=== PATIENT | male | born 1980 | race Caucasian/White ===

== ENCOUNTER 2020-02-04 12:21 | Emergency (ER) | payer OTHER, SELFPAY ==
--- NOTE | 2020-02-04 | US_ITS ---
EXAMINATION: ULTRASOUND RIGHT THIGH CLINICAL INFORMATION: In the thigh pain with question of abscess or cellulitis COMPARISON: None TECHNIQUE: Ultrasound of the right inner thigh was performed. FINDINGS: In the area of clinical concern, there is a complex ill-defined masslike area measuring 9.3 x 3.1 x 5.6 cm. There are some central cystic irregular components. No discrete abscess is seen. No shadowing air or foreign body is seen. Of note, no significant increased Doppler flow signal is seen in this region to suggest hyperemia. IMPRESSION: Ill-defined area with some solid and cystic components as described above. Infection would certainly be a consideration.
[2020-02-04 13:08] VITALS: BP 150/92; PULSE 98; RESP 20; TEMP 36.1; O2SAT 99; BMI 41.3
[2020-02-04 14:46] VITALS: BP 143/84; PULSE 87; RESP 18; TEMP 37.2; O2SAT 94
--- NOTE | 2020-02-04 14:46 | ED_ITS ---
HPI - Skin/Abscess/Foreign Bdy General Chief complaint: Skin/Abscess/Foreign Body Stated complaint: LUMP ON THIGH Time Seen by Provider: 02/04/20 14:41 Source: patient Mode of arrival: ambulatory Limitations: no limitations History of Present Illness complaint: abscess/boil Onset (ago): day(s) (2) Location: RLE (Right inner thigh ) Severity: moderate Quality: aching Pain Consistency: constant Relieving factors: none and other Exacerbating factors: palpation and movement Context: none Associated symptoms: denies other symptoms Treatments prior to arrival: attempted to drain pus at home and other (warm compresses ) Related Data Previous Rx's Medication Instructions Recorded cephalexin [Keflex] 500 mg PO QID 10 Days #40 cap 02/04/20 doxycycline monohydrate 100 mg PO BID 10 Days #20 cap 02/04/20 ibuprofen 800 mg PO Q8H PRN #14 tab 02/04/20 Allergies Allergy/AdvReac Type Severity Reaction Status Date / Time No Known Allergies Allergy Unverified 01/20/20 14:41 [No Known Allergies*] Review of Systems Review of Systems: Yes all other systems are reviewed and are negative Constitutional: Constitutional: Reports as per HPI, Denies body ache(s), Denies chills, Denies fatigue, Denies fever(s), Denies malaise and Denies weakness Eyes: Eyes: Reports as per HPI ENT: Reports as per HPI Cardiovascular: Cardiovascular: Reports as per HPI Respiratory: Respiratory: Reports as per HPI Gastrointestinal: Gastrointestinal: Reports as per HPI Genitourinary: Genitourinary: Reports as per HPI Musculoskeletal: Musculoskeletal: Reports as per HPI Integumentary/Breasts: Skin/Breast: Reports as per HPI Neurologic: Reports as per HPI and Denies weakness Psychiatric: Psychiatric: Reports as per HPI Endocrine: Endocrine: Reports as per HPI and Denies fatigue Hematologic/Lymphatic: Hematologic/Lymphatic: Reports as per HPI and Denies lymphadenopathy Allergic/Immunologic: Allergic/Immunologic: Reports as per HPI PMFSH Past Medical History Medical History Hernia Prediabetes Psoriasis Sciatica Surgical History H/O umbilical hernia repair Social History Social History Alcohol intake: never Smoking Status: Current every day smoker Use of substances other than those prescribed or required for medical reasons: No Any prior treatment program specific to substance use: Yes Advance Directives: No Advance Directives Information Provided: No Physical Exam Vital Signs and I&O and Narrative: Vital Signs and I&O: Vital Signs Temp 98.9 F 02/04/20 14:46 Pulse 87 02/04/20 14:46 Resp 18 02/04/20 14:46 BP 143/84 H 02/04/20 14:46 Pulse Ox 94 02/04/20 14:46 Intake & Output 02/03/20 02/04/20 02/04/20 18:59 06:59 18:59 Weight 154.221 kg Body Mass Index 41.3 Const: General: cooperative, healthy appearing, no acute distress, well developed, alert, awake and Physically active Nutritional Appearance: obese Orientation/consciousness: patient oriented x3 Limitations: no limitations HENMT: Head: Yes normal to inspection Ears: hearing grossly normal bilaterally General nose exam: Normal external nose present Face and sinus: Yes normal facial exam Mouth: Normal oral and palatal mucosa present and moist mucous membranes Eyes: General: appearance normal, both eyes and all related structures Visual Contreras: normal visual contreras by confrontation Pupils: Equal, round and reactive pupils present EOM: EOMs intact bilaterally Neck: Neck: Yes normal visual inspection, Yes full ROM, No no lymphadenopathy, No no meningeal signs, Yes trachea midline and Yes supple Resp: Effort & Inspection: normal respiratory effort and able to speak in complete sentences Auscultation: clear to auscultation bilaterally Cardio: Rate: regular rate Rhythm: regular rhythm Heart sounds: S1 normal heart sound present and S2 normal heart sound present Peripheral pulses: Peripheral pulses 2+ throughout Back/Spine/Pelvis: Cervical Spine: cervical ROM normal Thoracic/Lumbar Spine: thoraco-lumbar ROM normal Skin: General skin exam: elasticity normal, turgor normal and erythema (Right inner thigh. No fluctuance/induration/streaking noted.) Neuro: General: patient oriented x3 and No no meningeal signs Cranial nerves: Yes Equal, round and reactive pupils present Course Course Hospital Course: Will obtain US to Evaluate for possible abscess vs cellulitis Pt requesting to leave at this time despite US results not being back yet. Therefore will d/c home c abx's and instructions to return if any new or worsening symptoms. Pt understands and agrees with plan at this time 6:11PM pt's US result came back and revealed CLINICAL INFORMATION: In the thigh pain with question of abscess or cellulitis COMPARISON: None TECHNIQUE: Ultrasound of the right inner thigh was performed. FINDINGS: In the area of clinical concern, there is a complex ill-defined masslike area measuring 9.3 x 3.1 x 5.6 cm. There are some central cystic irregular components. No discrete abscess is seen. No shadowing air or foreign body is seen. Of note, no significant increased Doppler flow signal is seen in this region to suggest hyperemia. IMPRESSION: Ill-defined area with some solid and cystic components as described above. Infection would certainly be a consideration. - therefore will call pt and inform if not better after the PO abx's to f/u PCP. Pt understand and agrees with plan MDM - Skin/Abscess/Foreign Bdy Medical Records Attestation: I reviewed the patient's medical records. Discharge Plan Discharge Clinical Impression: Cellulitis Qualifiers: Site of cellulitis: extremity Site of cellulitis of extremity: lower extremity Laterality: right Qualified Code(s): L03.115 - Cellulitis of right lower limb Patient Disposition: Home, Self-Care Instructions: Cellulitis (ED) Prescriptions: New doxycycline monohydrate 100 mg capsule 100 mg PO BID 10 Days Qty: 20 RF: 0 cephalexin [Keflex] 500 mg capsule 500 mg PO QID 10 Days Qty: 40 RF: 0 ibuprofen 800 mg tablet 800 mg PO Q8H PRN (Reason: pain) Qty: 14 RF: 0 Interventions: ED Discharge Assessment Last Done: 02/04/20 16:51 Discharge Date/Time: 02/04/20 16:45 Print Language: Italian
--- NOTE | 2020-02-04 16:20 | PC.NURSE ---
PT HAD ULTRA SOUND DOWN BUT STATING HE WANTS TO LEAVE BECAUSE HE IS TIRED AND HE DOES NOT WANT TO WAIT FOR RESULTS. LEANNA HERNANDEZ AWARE AND SPOKE WITH PT BUT HE DOES NOT WANT TO STAY. HE WILL BE D/C ON ANTIBIOTIC AND WILL BE CALLED ONLY WITH ABNORMAL RESULTS.
== END 2020-02-04 16:45 | disposition home or self-care (01) ==
PROVIDERS: Emergency Provider Emergency Medicine; PCP Internal Medicine
DX: L03.115 Cellulitis of right lower limb (principal); R73.03 Prediabetes; F17.200 Nicotine dependence, unspecified, uncomplicated
CPT/HCPCS: 76882; 99284

== ENCOUNTER 2020-11-22 11:11 | Outpatient (REF) | payer OTHER, SELFPAY ==
[2020-11-22 13:15] LABS: Alanine Aminotransferase 18 U/L (0-40); Albumin Level 4.2 g/dL (3.5-5.0); Alkaline Phosphatase 73 U/L (39-117); Anion Gap 12 (12-20); Aspartate Amino Transferase 18 U/L (5-37); Bilirubin Total 0.7 mg/dL (0.0-1.0); Blood Urea Nitrogen 14 mg/dL (9-16); Calcium 9.6 mg/dL (8.4-10.2); Carbon Dioxide 29 mmol/L (22-29); Chloride 100 mmol/L (96-108); Cholesterol 177 mg/dL; Estimated Glomerular Filt Rate > 60; Glucose Fasting 100 mg/dL (60-99); HDL Cholesterol 45 mg/dL; LDL Cholesterol Calculated 112 mg/dl; Potassium 4.2 mmol/L (3.3-5.1); Sodium 137 mmol/L (135-145); Total Protein 7.2 g/dL (6.5-8.0); Triglycerides 100 mg/dL
[2020-11-22 14:00] LABS: Estimated Average Glucose 146 mg/dL; Hemoglobin A1c % 6.7 %
[2020-11-29 15:27] LABS: Testosterone, Free 13.4 pg/mL (35.0-155.0); Testosterone, Total 129 ng/dL (250-1100)
== END 2020-11-22 11:12 | disposition home or self-care (01) ==
LOC: HO.MANLDS 11:11
PROVIDERS: PCP Internal Medicine; Visit Provider Internal Medicine
DX: E11.9 Type 2 diabetes mellitus without complications (principal); N52.9 Male erectile dysfunction, unspecified
CPT/HCPCS: 36415; 80053; 80061; 83036; 84402; 84403

== ENCOUNTER 2020-12-08 10:55 | Outpatient (REF) | payer OTHER, SELFPAY ==
[2020-12-12 17:46] LABS: Testosterone, Free 12.5 pg/mL (35.0-155.0); Testosterone, Total 89 ng/dL (250-1100)
== END 2020-12-08 10:56 | disposition home or self-care (01) ==
LOC: HO.MANLDS 10:55
PROVIDERS: PCP Internal Medicine; Visit Provider Internal Medicine
DX: E29.1 Testicular hypofunction (principal)
CPT/HCPCS: 36415; 84402; 84403

== ENCOUNTER 2021-03-07 10:01 | Outpatient (REF) | payer OTHER, SELFPAY ==
[2021-03-07 11:13] LABS: Estimated Average Glucose 143 mg/dL; Hemoglobin A1c % 6.6 %
[2021-03-12 04:12] LABS: Testosterone, Total 303 ng/dL (250-1100)
== END 2021-03-07 10:02 | disposition home or self-care (01) ==
LOC: HO.MANLDS 10:01
PROVIDERS: PCP Internal Medicine; Visit Provider Internal Medicine
DX: R79.89 Other specified abnormal findings of blood chemistry (principal)
CPT/HCPCS: 36415; 83036; 84403

== ENCOUNTER 2021-06-27 09:54 | Outpatient (REF) | payer OTHER, SELFPAY ==
[2021-06-27 12:15] LABS: Estimated Average Glucose 186 mg/dL; Hemoglobin A1c % 8.1 %
[2021-07-01 12:26] LABS: Testosterone, Total 741 ng/dL (250-1100)
== END 2021-06-27 09:55 | disposition home or self-care (01) ==
LOC: HO.MANLDS 09:54
PROVIDERS: PCP Internal Medicine; Visit Provider Internal Medicine
DX: E11.65 Type 2 diabetes mellitus with hyperglycemia (principal)
CPT/HCPCS: 36415; 83036; 84403

== ENCOUNTER 2022-12-30 10:23 | Outpatient (REF) | payer OTHER, SELFPAY ==
[2022-12-30 12:56] LABS: MANUAL DIFF FLAG NO
[2022-12-30 13:06] LABS: Basophils Absolute Auto 0.1 X10*3/uL (0.0-0.2); Basophils Percent Auto 0.9 % (0-2); Hematocrit 44.8 % (42.0-52.0); Hemoglobin 14.4 g/dl (14.0-18.0); Imm Gran Abs Auto 0.02 X10*3/uL (0.00-0.03); Imm Gran Pct Auto 0.2 % (0.0-0.4); Lymphocytes Absolute Auto 3.1 X10*3/uL (1.2-4.9); Lymphocytes Percent Auto 29.8 % (20-40); Mean Corpuscular HGB Conc 32.1 g/dl (31.0-36.0); Mean Corpuscular Volume 87.2 fL (80.0-98.0); Mean Platelet Volume 9.5 fL (9.4-12.4); Monocytes Absolute Auto 0.8 X10*3/uL (0.1-1.2); Monocytes Percent Auto 7.4 % (2-11); Neutrophils Absolute Auto 6.5 x10*3/uL (2.0-8.3); Neutrophils Percent Auto 61.7 % (45-73); Platelet Count 295 X10*3/uL (160-400); Red Blood Count 5.14 X10*6/uL (4.60-5.80); Red Cell Distribution Width 12.9 % (11.0-16.0); White Blood Count 10.5 X10*3/uL (4.8-10.8)
[2022-12-30 13:22] LABS: Estimated Average Glucose 143 mg/dL; Hemoglobin A1c % 6.6 % (<6.0)
[2022-12-30 13:25] LABS: Alanine Aminotransferase 20 U/L (0-40); Albumin Level 4.2 g/dL (3.5-5.0); Alkaline Phosphatase 64 U/L (39-117); Anion Gap 11 (12-20); Aspartate Amino Transferase 18 U/L (5-37); Bilirubin Total 0.5 mg/dL (0.0-1.0); Blood Urea Nitrogen 17 mg/dL (9-16); Calcium 9.5 mg/dL (8.4-10.2); Carbon Dioxide 30 mmol/L (22-29); Chloride 99 mmol/L (96-108); Estimated Glomerular Filt Rate > 60; Glucose Random 119 mg/dL (60-115); Potassium 4.4 mmol/L (3.3-5.1); Sodium 136 mmol/L (135-145); Total Protein 7.6 g/dL (6.5-8.0)
== END 2022-12-30 10:24 | disposition home or self-care (01) ==
LOC: HO.MANLDS 10:23
PROVIDERS: Visit Provider Internal Medicine
DX: E11.65 Type 2 diabetes mellitus with hyperglycemia (principal)
CPT/HCPCS: 36415; 80053; 83036; 85025

== ENCOUNTER 2023-05-19 08:45 | Emergency (ER) | payer OTHER, SELFPAY ==
--- NOTE | ~2023-05-19 | XR_ITS ---
EXAMINATION: XR LUMBOSACRAL SPINE CLINICAL INFORMATION: Injury. Pain COMPARISON: None available. TECHNIQUE: Three views of the lumbosacral spine. FINDINGS: There is normal lumbar lordosis. The vertebral heights, alignment is normal. There is loss of L2-L2 disc height with ventral and posterior spondylosis. Rest the disc heights are normal. No visible acute fracture, dislocation or subluxation seen. The paravertebral soft tissues are normal. SI joints are normal. There is moderate right lateral bridging osteophyte L2-L2 disc level. The paravertebral soft tissues are normal. XR/XR lumbar spine 2-3V IMPRESSION: Degenerative disc changes L2-L2 disc level with ventral and posterior spondylosis. No visible acute fracture, dislocation or lytic process seen. .
[2023-05-19 09:03] VITALS: BP 176/123; PULSE 87; RESP 20; TEMP 35.9; O2SAT 97; BMI 52.0
--- NOTE | 2023-05-19 10:24 | ED.GENADULT ---
HPI - General Adult General Chief complaint: Back Pain/Injury Stated complaint: pinched nerve in back Time Seen by Provider: 05/19/23 10:23 Source: patient and family (patient's father) Mode of arrival: ambulatory Limitations: no limitations History of Present Illness HPI narrative: Patient is a 42 year old assigned male at with a history of sciatica presenting to the emergency department today with continued low back pain and intermittent left upper leg numbness. Patient states that over the last 6-8 weeks he has had low back pain and intermittent left upper leg weakness. Patient denies any dizziness, lightheadedness, abdominal pain, nausea, vomiting, fever, chills, blurry vision, double vision, loss of vision, chest pain, difficulty breathing, shortness of breath, night sweats, pain with urination, increased urinary frequency, increased urinary urgency, blood in his urine or stool, syncope or a near syncopal episode, bowel incontinence, bladder incontinence, bowel retention, bladder retention, or any other complaints at this time. Onset (ago): week(s) (-8) Location: back Severity: mild Severity scale (1-10): 3 Quality: aching Pain Consistency: constant Relieving factors: none Exacerbating factors: none Associated symptoms: denies other symptoms Treatments prior to arrival: none Related Data Previous Rx's Medication Instructions Recorded cephalexin 500 mg capsule (Keflex) 500 mg PO QID celluilitis 10 days 02/04/20 #40 caps doxycycline monohydrate 100 mg 100 mg PO BID 10 days #20 caps 02/04/20 capsule ibuprofen 800 mg tablet 800 mg PO Q8H PRN pain #14 tabs 02/04/20 cyclobenzaprine 5 mg tablet 5 mg PO TID PRN muscle spasm 7 05/19/23 days #21 tabs prednisone 20 mg tablet 20 mg PO DAILY 7 days #7 tabs 05/19/23 Allergies Allergy/AdvReac Type Severity Reaction Status Date / Time No Known Allergies Allergy Verified 05/19/23 09:08 [No Known Allergies*] Review of Systems Constitutional: Constitutional: Reports no additional constitutional complaints, Denies chills, Denies fever(s) and Denies night sweats Eyes: Eyes: Reports no additional eye complaints, Denies blurry vision, Denies change in vision, Denies diplopia, Denies eye discharge, Denies loss of vision and Denies eye pain ENT: Denies dizziness Cardiovascular: Cardiovascular: Reports no additional cardiovascular complaints, Denies chest pain, Denies lightheadedness, Denies Loss of Consciousness and Denies dyspnea Respiratory: Respiratory: Reports no additional respiratory complaints and Denies dyspnea Gastrointestinal: Gastrointestinal: Reports no additional gastrointestinal complaints, Denies abdominal pain, Denies melena, Denies hematochezia, Denies change in bowel habits and Denies change in stool character Genitourinary: Genitourinary: Reports no additional male genitourinary complaints, Denies hematuria, Denies oliguria, Denies difficulty urinating, Denies dysuria, Denies urinary frequency, Denies urinary hesitancy, Denies urinary incontinence and Denies urinary urgency Musculoskeletal: Musculoskeletal: Reports no additional musculoskeletal complaints and Reports back pain Neurologic: Denies dizziness and Denies loss of vision Psychiatric: Psychiatric: Reports no additional psychiatric complaints Endocrine: Endocrine: Reports no additional endocrine complaints Hematologic/Lymphatic: Hematologic/Lymphatic: Reports no additional hematologic/lymphatic complaints Allergic/Immunologic: Allergic/Immunologic: Reports no additional allergic/immunologic complaints PMFSH Past Medical History Attestation statement: The following information was validated with the patient. Source: old records reviewed and nursing notes reviewed Onset Date is defined in the Problem List Problems that require an onset date and time if occurred within 24 hrs of arrival to the ED Aortic Dissection and Rupture; Neurologic impairment; Cardiopulmonary Arrest; Endotracheal Intubation; Insertion or Replacement of Mechanical Circulatory Assist Device Medical History Hernia Sciatica Psoriasis Prediabetes Surgical History H/O umbilical hernia repair Social History Social History Alcohol intake: never Advance Directives: No Advance Directives Information Provided: No Physical Exam ED Vital Signs: Vital Signs - 24 hr 05/19/23 09:03 Temperature 96.7 F L Pulse Rate 87 Respiratory Rate 20 Blood Pressure 176/123 H Pulse Oximetry 97 Oxygen Delivery Method Room Air BMI result Body Mass Index 52.0 Const General: cooperative, no acute distress, alert and awake Nutritional Appearance: well nourished Orientation/consciousness: patient oriented x3 Limitations: no limitations HENMT Head: Yes normal to inspection and Yes atraumatic Ears: hearing grossly normal bilaterally and external ears normal General nose exam: Normal external nose present, no nasal discharge noted and no epistaxis Face and sinus: Yes normal facial exam, No abrasion and No laceration Mouth: Normal oral and palatal mucosa present, no drooling and no muffled voice Eyes General: appearance normal, both eyes and all related structures Periorbital: periorbital findings normal Eyelids: Yes eyelids normal Conjunctivae: conjunctivae normal Pupils: Equal, round and reactive pupils present EOM: EOMs intact bilaterally Neck Neck: Yes normal visual inspection, Yes full ROM and Yes no lymphadenopathy Chest Chest palpation & inspection: normal inspection of the chest Resp Effort & Inspection: normal respiratory effort and able to speak in complete sentences GI Inspection: Yes normal to inspection General: Yes no CVA tenderness Back/Spine/Pelvis Back: no CVA tenderness Cervical Spine: normal cervical lordosis and cervical ROM normal Thoracic/Lumbar Spine: thoracic and lumbar spine normal to inspection and thoraco-lumbar ROM normal Pelvis: no pain with anterior-posterior compression Neuro General: patient oriented x3 and moves all extremities Cranial nerves: Yes Equal, round and reactive pupils present Cognition (Neuro): normal cognition Motor exam (neuro): 5/5 motor strength present throughout Sensory Exam: Normal double simultaneous stimulation for sensation Coordination: [id number] test normal Extrem General: Yes normal to inspection, Yes full ROM and Yes capillary refill normal Psych Appearance: grossly normal Mental Status: mental status grossly normal Affect: normal affect Attitude: cooperative Thought process: Normal thought process present Thought content: Normal thought content present Insight: Good insight present (Psych) Medications Administered Discontinued Medications Generic Name Dose Route Start Last Admin Trade Name Gina PRN Reason Stop Dose Admin Ketorolac Tromethamine 15 mg 05/19/23 10:28 05/19/23 10:54 Ketorolac Tromethamine 15 Mg/Ml Vial IM 05/19/23 10:29 15 mg ONCE ONE Administration Prednisone 20 mg 05/19/23 10:28 05/19/23 10:54 Prednisone 20 Mg Tablet PO 05/19/23 10:29 20 mg ONCE ONE Administration Medical Decision Making Medical Decision Making [facility] Narrative: Patient is a 42 year old assigned male at with a history of sciatica presenting to the emergency department today with low back pain. Patient's physical exam was unremarkable. Patient's lumbar x-ray showed no acute process. I explained my physical exam findings as well as all test results to the patient and the patient's father. I answered all questions asked by the patient and the patient's father. Patient received IM Toradol and PO Flexeril which he stated helped his symptoms significantly. I stressed the importance of the patient taking his medication as prescribed. I stressed the importance of the patient following up with his primary care provider and a community service specialist. I stressed the importance of the patient returning to the emergency department immediately if his symptoms were to worsen or if he were to develop any dizziness, shortness of breath, difficulty breathing, chest pain, blurry vision, loss of vision, nausea, vomiting, abdominal pain, fever, chills, back pain, or any other complaints. Patient and the patient's father verbalized agreement and understanding with this treatment plan and discharge. Differential Diagnosis Differential Diagnoses: The differential diagnosis associated with the presentation includes Low back pain Lumbar radiculopathy Herniated disc Lumbar strain Lumbar sprain Admission/Observation Consideration of admission/observation: Escalation of care including admission/observation considered Patient would have been admitted to the hospital had his work up had any findings where hospital admission was appropriate and his clinical presentation warranted hospital admission. Independent Interpretation I performed an independent interpretation of an: Plain X-Ray Interpretation: My interpretation is in agreement with the radiologist's impression of this imaging study. EXAMINATION: XR LUMBOSACRAL SPINE CLINICAL INFORMATION: Injury. Pain COMPARISON: None available. TECHNIQUE: Three views of the lumbosacral spine. FINDINGS: There is normal lumbar lordosis. The vertebral heights, alignment is normal. There is loss of L2-L2 disc height with ventral and posterior spondylosis. Rest the disc heights are normal. No visible acute fracture, dislocation or subluxation seen. The paravertebral soft tissues are normal. SI joints are normal. There is moderate right lateral bridging osteophyte L2-L2 disc level. The paravertebral soft tissues are normal. XR/XR lumbar spine 2-3V IMPRESSION: Degenerative disc changes L2-L2 disc level with ventral and posterior spondylosis. No visible acute fracture, dislocation or lytic process seen. . Dictated By: Oh Osborn MD Signed By: Electronically signed by Oh Osborn MD 05/19/23 0270 Radiology Impression Discussion of test interpretation with radiology: I have reviewed the radiologist's reading. Independent Historian Clinical information obtained from an independent historian. History obtained from or confirmed by: Parent (patient's father provided additional history and confirmed the history provided by the patient.) Prescription Management I considered prescription management with: Pain Medication (patient prescribed pain medication) Discharge Plan Discharge Clinical Impression: Back pain Patient Disposition: Home, Self-Care Instructions: Back Pain (ED) Additional Instructions: Follow up with your primary care provider and a community service specialist. Return to the emergency department immediately if your symptoms worsen or if you develop any dizziness, shortness of breath, difficulty breathing, chest pain, blurry vision, loss of vision, nausea, vomiting, abdominal pain, fever, chills, back pain, or any other complaints. Prescriptions: New cyclobenzaprine 5 mg tablet 5 mg PO TID PRN (Reason: muscle spasm) 7 Days Qty: 21 0RF prednisone 20 mg tablet 20 mg PO DAILY 7 Days Qty: 7 0RF No Action doxycycline monohydrate 100 mg capsule 100 mg PO BID 10 Days Qty: 20 0RF cephalexin [Keflex] 500 mg capsule 500 mg PO QID 10 Days Qty: 40 0RF ibuprofen 800 mg tablet 800 mg PO Q8H PRN (Reason: pain) Qty: 14 0RF Referrals: [facility] [Provider Group] (Call to establish and follow up with an orthopedic provider.) [facility] [Provider Group] (Call to establish and follow up with a community service specialist.) Danny Hughes MD [Primary Care Provider] - Stand Alone Forms: Work/School Release Interventions: ED Discharge Assessment Last Done: 05/19/23 12:30 Discharge Date/Time: 05/19/23 12:30 Print Language: [place]
[2023-05-19] MEDS: Ketorolac Tromethamine 15 MG/ML VIAL IM (10:54)
[2023-05-19] MEDS: predniSONE 20 MG TABLET PO (10:54)
== END 2023-05-19 12:30 | disposition home or self-care (01) ==
PROVIDERS: Emergency Provider Emergency Medicine; PCP Internal Medicine
DX: M54.50 Low back pain, unspecified (principal); R20.0 Anesthesia of skin; Z79.899 Other long term (current) drug therapy
CPT/HCPCS: 72100; 96372; 99283; 99284; J1885

== ENCOUNTER 2023-07-07 12:20 | Outpatient (REF) | payer OTHER, SELFPAY ==
[2023-07-07 17:24] LABS: MANUAL DIFF FLAG NO
[2023-07-07 17:34] LABS: Basophils Absolute Auto 0.1 X10*3/uL (0.0-0.2); Eosinophils Absolute Auto 0.3 X10*3/uL (0.0-0.4); Eosinophils Percent Auto 4.2 % (0-4); Hematocrit 42.7 % (42.0-52.0); Hemoglobin 14.1 g/dl (14.0-18.0); Imm Gran Abs Auto 0.03 X10*3/uL (0.00-0.03); Imm Gran Pct Auto 0.4 % (0.0-0.4); Lymphocytes Absolute Auto 2.8 X10*3/uL (1.2-4.9); Lymphocytes Percent Auto 35.9 % (20-40); Mean Corpuscular Hemoglobin 29.7 pg (27.0-33.0); Mean Corpuscular Volume 89.9 fL (80.0-98.0); Mean Platelet Volume 9.5 fL (9.4-12.4); Monocytes Absolute Auto 0.6 X10*3/uL (0.1-1.2); Monocytes Percent Auto 7.6 % (2-11); Neutrophils Percent Auto 50.9 % (45-73); Platelet Count 293 X10*3/uL (160-400); Red Blood Count 4.75 X10*6/uL (4.60-5.80); Red Cell Distribution Width 12.4 % (11.0-16.0); White Blood Count 7.8 X10*3/uL (4.8-10.8)
[2023-07-07 17:42] LABS: Alanine Aminotransferase 37 U/L (0-40); Albumin Level 4.2 g/dL (3.5-5.0); Alkaline Phosphatase 60 U/L (39-117); Anion Gap 11 (12-20); Aspartate Amino Transferase 24 U/L (5-37); Bilirubin Total 0.3 mg/dL (0.0-1.0); Blood Urea Nitrogen 15 mg/dL (9-16); Calcium 9.2 mg/dL (8.4-10.2); Carbon Dioxide 28 mmol/L (22-29); Chloride 101 mmol/L (96-108); Estimated Average Glucose 206 mg/dL; Estimated Glomerular Filt Rate > 60; Glucose Random 324 mg/dL (60-115); Hemoglobin A1c % 8.8 % (<6.0); Potassium 4.3 mmol/L (3.3-5.1); Sodium 136 mmol/L (135-145); Total Protein 7.5 g/dL (6.5-8.0)
[2023-07-07 18:05] LABS: Creatinine Urine 98.34 mg/dL; Microalbum/Creatinine Ratio Ur 10.1 ug/mg cr (<30)
[2023-07-13 12:53] LABS: Testosterone, Total 180 ng/dL (250-1100)
== END 2023-07-07 12:21 | disposition home or self-care (01) ==
LOC: HO.MANLDS 12:20
PROVIDERS: Visit Provider Internal Medicine
DX: E11.65 Type 2 diabetes mellitus with hyperglycemia (principal); E29.1 Testicular hypofunction
CPT/HCPCS: 36415; 80053; 82043; 82570; 83036; 84403; 85025

== ENCOUNTER 2023-07-08 07:57 | Outpatient (REF) | payer OTHER, SELFPAY ==
[2023-07-08 15:12] LABS: Cholesterol 177 mg/dL (<200); HDL Cholesterol 51 mg/dL (>40); LDL Cholesterol Calculated 94 mg/dL (<100); Triglycerides 162 mg/dL (<150)
== END 2023-07-08 07:58 | disposition home or self-care (01) ==
LOC: HO.MANLDS 07:57
PROVIDERS: Visit Provider Internal Medicine
DX: E11.65 Type 2 diabetes mellitus with hyperglycemia (principal)
CPT/HCPCS: 36415; 80061

== ENCOUNTER 2024-06-30 11:17 | Outpatient (REF) | payer OTHER, SELFPAY ==
[2024-06-30 13:33] LABS: MANUAL DIFF FLAG NO
[2024-06-30 13:36] LABS: Basophils Absolute Auto 0.1 X10*3/uL (0.0-0.2); Basophils Percent Auto 0.9 % (0-2); Eosinophils Percent Auto 0.1 % (0-4); Hematocrit 48.1 % (42.0-52.0); Hemoglobin 15.3 g/dl (14.0-18.0); Imm Gran Abs Auto 0.03 X10*3/uL (0.00-0.03); Imm Gran Pct Auto 0.3 % (0.0-0.4); Lymphocytes Percent Auto 29.4 % (20-40); Mean Corpuscular HGB Conc 31.8 g/dl (31.0-36.0); Mean Corpuscular Hemoglobin 27.6 pg (27.0-33.0); Mean Corpuscular Volume 86.7 fL (80.0-98.0); Mean Platelet Volume 9.5 fL (9.4-12.4); Monocytes Absolute Auto 0.7 X10*3/uL (0.1-1.2); Monocytes Percent Auto 6.4 % (2-11); Neutrophils Absolute Auto 6.5 x10*3/uL (2.0-8.3); Neutrophils Percent Auto 62.9 % (45-73); Platelet Count 322 X10*3/uL (160-400); Red Blood Count 5.55 X10*6/uL (4.60-5.80); Red Cell Distribution Width 12.3 % (11.0-16.0); White Blood Count 10.3 X10*3/uL (4.8-10.8)
[2024-06-30 13:48] LABS: Estimated Average Glucose 278 mg/dL; Hemoglobin A1c % 11.3 % (<6.0)
[2024-06-30 14:35] LABS: Alanine Aminotransferase 29 U/L (0-40); Albumin Level 4.2 g/dL (3.5-5.0); Alkaline Phosphatase 81 U/L (39-117); Anion Gap 12 (12-20); Aspartate Amino Transferase 25 U/L (5-37); Bilirubin Total 0.9 mg/dL (0.0-1.0); Blood Urea Nitrogen 17 mg/dL (9-16); Calcium 9.7 mg/dL (8.4-10.2); Carbon Dioxide 30 mmol/L (22-29); Chloride 101 mmol/L (96-108); Cholesterol 186 mg/dL (<200); Estimated Glomerular Filt Rate > 60; Glucose Random 178 mg/dL (60-115); HDL Cholesterol 53 mg/dL (>40); LDL Cholesterol Calculated 112 mg/dL (<100); Potassium 4.8 mmol/L (3.3-5.1); Sodium 138 mmol/L (135-145); Total Protein 8.4 g/dL (6.5-8.0); Triglycerides 106 mg/dL (<150)
[2024-07-10 05:54] LABS: Testosterone, Free 762.8 pg/mL (35.0-155.0); Testosterone, Total 3246 ng/dL (250-1100)
== END 2024-06-30 11:18 | disposition home or self-care (01) ==
LOC: HO.MANLDS 11:17
PROVIDERS: Visit Provider Physician Assistant
DX: E11.65 Type 2 diabetes mellitus with hyperglycemia (principal); E29.1 Testicular hypofunction
CPT/HCPCS: 36415; 80053; 80061; 83036; 84402; 84403; 85025

== ENCOUNTER 2025-01-21 09:27 | Outpatient (REF) | payer OTHER, SELFPAY ==
[2025-01-21 13:55] LABS: Hemoglobin A1C 360.9736 umol/L; Total Hemoglobin (HGBA1C) 3822.9382 umol/L
== END 2025-01-21 09:28 | disposition home or self-care (01) ==
LOC: HO.MANLDS 09:27
PROVIDERS: Visit Provider Internal Medicine
DX: E11.65 Type 2 diabetes mellitus with hyperglycemia (principal)
CPT/HCPCS: 36415; 83036

== ENCOUNTER 2025-02-22 09:25 | Outpatient (REF) | payer OTHER, SELFPAY ==
--- OUTSIDE RECORDS SUMMARY | 2025-02-22 10:30 | XMS_ITS | Data Portability ---
Author Organization [facility], Telehealth Patient Home Address [address] [place] [address] Assessment Encounter Date Assessment Date Assessment LastModified by Organization Details LastModified Time 07/07/2023 07/07/2023 [id number] [place] [id number] (PROVIDER RELATIONS CONSULTANT) MDM MODERATE MUST MEET 2 OUT OF 3 ELEMENTS: PROBLEMS, DATA OR RISK ELEMENT 1: PROBLEMS ADDRESSED 1 OR MORE CHRONIC ILLNESS WITH EXACERBATION OR 2 OR MORE STABLE CHRONIC ILLNESSES OR 1 UNDIAGNOSED NEW PROBLEM OR 1 ACUTE ILLNESS W/SYMPTOMS OR 1 ACUTE COMPLICATED INJURY ELEMENT 2: DATA MUST MEET 1 OF 3 CATEGORIES CATEGORY 1: REVIEW OF PRIOR EXTERNAL NOTES, REVIEW OF RESULTS, ORDERING OF EACH TEST, ASSESSMENT REQUIRING INDEPENDENT HISTORIAN OR CATEGORY 2: INDEPENDENT INTERPRETATION OF TESTS BY ANOTHER PHYSICIAN OR SPECIALIST OR CATEGORY 3: DISCUSSION OF MGT OR TEST INTERPRETATION W/EXTERNAL PHYSICIAN OR SPECIALIST ELEMENT 3: RISK RISK OF COMPLICATIONS AND/OR MORBIDITY OR MORTALITY OF PATIENT MANAGEMENT PROVIDER MUST THOROUGHLY DOCUMENT EACH ELEMENT THAT IS COVERED Not available 07/07/2023 12:10:49 01/21/2025 01/21/2025 [id number] [place] [id number] (PROVIDER RELATIONS CONSULTANT) MDM MODERATE MUST MEET 2 OUT OF 3 ELEMENTS: PROBLEMS, DATA OR RISK ELEMENT 1: PROBLEMS ADDRESSED 1 OR MORE CHRONIC ILLNESS WITH EXACERBATION OR 2 OR MORE STABLE CHRONIC ILLNESSES OR 1 UNDIAGNOSED NEW PROBLEM OR 1 ACUTE ILLNESS W/SYMPTOMS OR 1 ACUTE COMPLICATED INJURY ELEMENT 2: DATA MUST MEET 1 OF 3 CATEGORIES CATEGORY 1: REVIEW OF PRIOR EXTERNAL NOTES, REVIEW OF RESULTS, ORDERING OF EACH TEST, ASSESSMENT REQUIRING INDEPENDENT HISTORIAN OR CATEGORY 2: INDEPENDENT INTERPRETATION OF TESTS BY ANOTHER PHYSICIAN OR SPECIALIST OR CATEGORY 3: DISCUSSION OF MGT OR TEST INTERPRETATION W/EXTERNAL PHYSICIAN OR SPECIALIST ELEMENT 3: RISK RISK OF COMPLICATIONS AND/OR MORBIDITY OR MORTALITY OF PATIENT MANAGEMENT PROVIDER MUST THOROUGHLY DOCUMENT EACH ELEMENT THAT IS COVERED Not available 01/21/2025 09:21:29 02/21/2025 02/21/2025 [id number] [place] [id number] (PROVIDER RELATIONS CONSULTANT) : MDM LOW MUST MEET 2 OF 3 ELEMENTS: PROBLEMS, DATA OR RISK ELEMENT 1: PROBLEMS ADDRESSED (LOW): 2 OR MORE SELF-LIMITED OR MINOR PROBLEMS OR 1 STABLE CHRONIC ILLNESS OR 1 ACUTE UNCOMPLICATED ILLNESS OR INJURY ELEMENT 2: DATA TO BE REVISED AND ANALYZED (LOW) MUST MEET 1 OF 2 CATEGORIES: CATEGORY 1. REVIEW OF PRIOR EXTERNAL NOTES/RESULTS, ORDERING OF TEST(S) CATEGORY 2. ASSESSMENT REQUIRING INDEPENDENT HISTORIAN(S) INCLUDE WHO THE HISTORIAN IS AND RELATION TO PT AND WHY PT IS UNABLE TO GIVE COMPLETE HISTORY ELEMENT 3: RISK (LOW) RISK OF COMPLICATIONS AND/OR MORBIDITY OR MORTALITY OF PATIENT MANAGEMENT PROVIDER MUST THOROUGHLY DOCUMENT ALL OF THE ELEMENTS COVERED Not available 02/21/2025 16:35:24 Plan of Treatment Reminders Order Date Submit Date Provider Last Modified By Organization Details Last Modified Time Details Appointments None recorded. Lab hemoglobin A1c, QN, blood 2024 025 [facility], [address] [place] [address], [address], 16:38:17 hemoglobin A1c, QN, blood 2024 025 [facility], [address] [place] [address], [address], 5 12:02:01 CMP, serum or plasma 2024 025 [facility], [address] [place] [address], [address], 5 13:00:00 hemoglobin A1c, QN, blood 2024 025 [facility], [address] [place] [address], [address], 5 11:12:55 CBC w/ auto diff 2024 025 [facility], [address] [place] [address], 92462, 5 11:12:55 lipid panel, blood 2024 025 [facility], [address] [place] [address], 95198, 5 11:12:55 testostero ne, free + total, serum 2024 025 [facility], [address] [place] [address], 07[address], 5 12:21:00 HbA1c (hemoglobi n A1c), blood 2023 024 [facility], [address] [place] [address], 0[address], 4 11:29:28 CMP, serum or plasma 2023 024 [facility], [address] [place] [address], 89579, 4 12:26:12 lipid panel, blood 2023 024 [facility], [address] [place] [address], 36543, 4 11:16:17 microalbum in, urine 2023 024 [facility], [address] [place] [address], 94847, 4 12:26:13 CBC w/ auto diff 2023 024 [facility], [address] [place] [address], 06408, 4 12:26:12 testostero ne, total, serum 2023 024 [facility], [address] [place] [address], 311[address], 4 11:10:00 HbA1c (hemoglobi n A1c), blood 2022 023 [facility], [address] [place] [address], [address], 3 14:34:27 CMP, serum or plasma 2022 023 [facility], [address] [place] [address], 799[address], 3 15:35:21 CBC w/ auto diff 2022 023 [facility], [address] [place] [address], 250[address], 3 15:35:20 Referral None recorded. Procedures None recorded. Surgeries None recorded. Imaging None recorded. Medication Orders mirtazapin e 7.5 mg tablet 2024 025 [id number], [address] [place], [address], 5 11:11:41 gabapentin 600 mg tablet 2024 025 [id number], [address] [place], [address], 5 11:11:42 lorazepam 1 mg tablet 2023 024 [id number], [address] [place], [address], 4 12:15:18 Patient TargetsNo targets recorded. Patient InstructionsNo instructions recorded. Reason for Referral None Reported. Results Created Date Observation Date Name Description Value Unit Range Abnormal Flag Note LastModifiedBy Organization Detail LastModifiedTime 06/30/1906/30/2024 CMP, serum or plasm a A1C 11.3 abnormal Not Available [facility] (Medical Records) [address] [place], [address], 07/01/2024 11:45:31 05/19/19 24 05/19/2023 XR, lumbo sacra l spine , 2 or 3 view No observ ation record ed. [email or web address] [facility] (Medical Records) [address] [place], [address], 05/19/2023 13:15:24 Result Notes None recorded. Problems Name Problem SNOMED Code Status Onset Date Resolution Date Notes Provider Name and Address Organization Details Recorded Time Dion gonzalez 366863525 [facility] 14:[facility] Anxiety 42425823 Active 2017 Chikis rasheed [facility] 8 14:24:29 Type 2 diabetes mellitus 38909259 Active [facility] 14:24:34 Lumbar hernia 16812459 Completed 201709/03/2017 Danny Hughes DO [address] [place] [address], [address], [facility] 8 11:52:52 Displace ment of lumbar interver tebral disc without myelopat hy 59644859 Active 2017 Danny Hughes DO [address] [place] [address], [address], [facility] 8 11:53:15 Psoriasi s 8652582 Active 2017 Danny Hughes DO [address] [place] [address], [address], [facility] 8 10:53:44 Tobacco user 111673538 Active 2018 ZENON Stark [address] [place], [address], [facility] 9 10:42:21 Hypogona dism 25108897 Active 2021 Danny Hughes, DO [address] [place], [address], [facility] 2 15:43:40 Dental abscess 639602446 Active 2023 Danny Hughes, DO [address] [place], [address], [facility] 4 11:11:16 Insomnia 764340666 Active 2024 LEANNA COMER [address] [place], [address], [facility] 5 11:11:02 Problem Notes None recorded. Medical Equipment None Reported. Allergies No known drug allergies Medications Name Sig Start Date Stop Date Status Note LastModified by Organization Details LastModified Time carisoprodo l 350 mg tablet 09/03 completed Not Available Not Available Not Available metformin 500 mg tablet TAKE 1 TABLET BY MOUTH EVERY DAY active Not Available Not Available No t Available gabapentin 600 mg tablet TAKE 1 TABLET BY MOUTH THREE TIMES A DAY NEEDED active Not Available Not Available No t Available ibuprofen 800 mg tablet 02/15 completed Not Available Not Available Not Available prednisone 20 mg tablet TAKE 1 TABLET BY MOUTH EVERY DAY FOR 7 DAYS 07/06 completed Not Available Not Available Not Available betamethaso ne, augmented 0.05 % topical cream 03/10 completed Not Available Not Available Not Available alclometaso ne 0.05 % topical cream APPLY TWICE A DAY FOR 7-10 DAYS ON THE FACE 07/06 completed Not Available Not Available Not Available sildenafil 100 mg tablet Take 1 tablet as needed by oral route for 30 days. 03/07 completed Not Available Not Available Not Available triamcinolo ne acetonide 0.1 % topical cream 03/10 completed Not Available Not Available Not Available terbinafine HCl 250 mg tablet TAKE 1 TABLET BY MOUTH EVERY DAY 11/22 completed Not Available Not Available Not Available doxycycline monohydrate 100 mg capsule 11/22 completed Not Available Not Available Not Available cephalexin 500 mg capsule 10/23 completed Not Available Not Available Not Available triamcinolo ne acetonide 0.1 % topical ointment 09/03 completed Not Available Not Available Not Available betamethaso ne, augmented 0.05 % topical ointment 06/27 completed Not Available Not Available Not Available gabapentin 300 mg capsule 09/03 completed Not Available Not Available Not Available ammonium lactate 12 % topical cream 07/06 completed Not Available Not Available Not Available lorazepam 1 mg tablet TAKE 1 TABLET BY MOUTH EVERY 6 TO 8 HOURS NEEDED FOR 10 DAYS active Not Available Not Available No t Available amoxicillin 875 mg-potassiu m clavulanate 125 mg tablet TAKE 1 TABLET BY MOUTH EVERY 12 HOURS FOR 10 DAYS 06/30 completed Not Available Not Available Not Available testosteron e 1 % (50 mg/5 gram) transdermal gel packet apply 1 packet everyday 03/07 completed Not Available Not Available Not Available cyclobenzap rine 5 mg tablet TAKE 1 TABLET ORALLY 3 TIMES A DAY NEEDED FOR MUSCLE SPASM FOR 7 DAYS 07/06 completed Not Available Not Available Not Available mirtazapine 7.5 mg tablet Take 1 tablet every day by oral route at bedtime for 30 days. active Not Available Not Available No t Available Boostrix Tdap 2.5 Lf unit-8 mcg-5 Lf/0.5 mL intramuscul ar syringe 11/22 completed Not Available Not Available Not Available pregabalin 75 mg capsule TAKE 1 CAPSULE BY MOUTH TWICE A DAY 06/30 completed Not Available Not Available Not Available Humira Pen 40 mg/0.8 mL subcutaneou s kit Take injection every two weeks. active Not Available Not Available No t Available testosteron e 50 mg/5 gram (1 %) transdermal gel APPLY 1 PACKET EVERY DAY BY TRANSDERM AL ROUTE FOR 30 DAYS. 01/16 completed Not Available Not Available Not Available testosteron e 20.25 mg/1.25 gram per pump act.(1.62 %) transdermal gel 2 pumps qd 01/19 completed Not Available Not Available Not Available testosteron e 1.62 % (40.5 mg/2.5 gram) transdermal gel packet APPLY 1 PACKET TO THE SKIN EVERY DAY FOR 30 DAYS. active Not Available Not Available No t Available Humira(CF) Pen 40 mg/0.4 mL subcutaneou s kit 06/30 completed Not Available Not Available Not Available Mounjaro 2.5 mg/0.5 mL subcutaneou s pen injector Inject 2.5 mg every week by subcutane ous route for 30 days. 02/21 completed Not Available Not Available Not Available adalimumab- aaty 40 mg/0.4 mL subcutaneou s auto-inject or kit active Not Available Not Available Not Available Vitals Date Recorded Body height Body mass index (BMI) Body weight Heart rate Oxygen saturation Oxygen saturation in Arterial blood by Pulse oximetry Systolic And Diastolic Provider Name and Address Organization Details Last Updated DateTime 5 191.14 cm 41.1 kg/m2 706386. 07 g 95 /min 95 % 95 % 128/88 mm[Hg] Kerri Perez [facility] 5 11:02:59 Date Recorded Body height Body mass index (BMI) Body weight Heart rate Oxygen saturation Oxygen saturation in Arterial blood by Pulse oximetry Systolic And Diastolic Provider Name and Address Organization Details Last Updated DateTime 4 191.14 cm 41.6 kg/m2 045772. 44 g 87 /min 95 % 95 % 152/100 mm[Hg] Danny Hughes, DO [address] [place], [address] [place] [address] Internal Medicine 4 11:27:41 Date Recorded Body height Body mass index (BMI) Body weight Heart rate Oxygen saturation Oxygen saturation in Arterial blood by Pulse oximetry Systolic And Diastolic Provider Name and Address Organization Details Last Updated DateTime 5 191.14 cm 41.1 kg/m2 665528. 07 g 97 /min 97 % 97 % 138/80 mm[Hg] Natalie Bansal [facility] 5 09:02:35 Date Recorded Body height Heart rate Oxygen saturation Oxygen saturation in Arterial blood by Pulse oximetry Systolic And Diastolic Provider Name and Address Organization Details Last Updated DateTime 5 191.14 cm 102 /min 95 % 95 % 132/86 mm[Hg] Kerri Perez [facility] 5 16:11:03 Social History Question Answer Notes LastModified by Organizat ion Details LastModified Time Tobacco Smoking Status Current Some Day Smoker 4 per day Not Available [facility] 03/07/2020 03:36:23 What Was The Date Of Your Most Recent Tobacco Screening? 02/21/2025 [email or web address] Information not available 02/21/2025 Sex: Unknown Functional Status None recorded. Mental Status None recorded. Family History Nothing Reported. Medical History No medical history recorded. Immunizations Vaccine Type Date Status Note Provider Nam e and Address Organization Details Recorded Time Tdap 12/03/2019 completed Danny Hughes DO [address] [place] [address], [address], [facility] 11/22/2020 10:32:56 COVID-19, mRNA, LNP-S, PF, 100 mcg/0.5mL dose or 50 mcg/0.25mL dose 05/30/2020 completed Madie Dallas [address] [place] [address], [address], [facility] 11/22/2020 10:33:11 COVID-19, mRNA, LNP-S, PF, 100 mcg/0.5mL dose or 50 mcg/0.25mL dose 06/27/2020 completed Madie Dallas [address] [place] [address], [address], [facility] 11/22/2020 10:33:19 Past Encounters Encounter ID Performer Location Encounter Start Date Encounter Closed Date Diagnosis/Indication Diagnosis SNOMED-CT Code Diagnosis ICD10 Code Diagnosis IMO Codes Diagnosis Note [id number] Danny Hughes DO [facility] [address] [place] [address],[place] [address] 09/03/2017 10:42:04 09/03/2017 12:05:39 Type 2 diabetes mellitus 98942514 E11.9 will need A1c done today Displaceme nt of lumbar intervertebral disc without myelopathy 82343645 M51.26 cont with ongoing phys therapy and will be considerin g epidural injections await specialist follow up [id number] Danny Hughes DO [facility] [address] [place] [address],[place] [address] 10/03/2017 09:18:16 10/03/2017 10:19:36 Type 2 diabetes mellitus 25530420 E11.65 a1c at goal continue metformin Tobacco user 913054987 Z 72.0 he smokes 2 cig per day trying to quit [id number] Danny Hughes DO [facility] [address] [facility],[place] [address] 12/29/2017 10:13:10 12/29/2017 11:08:51 Type 2 diabetes mellitus 36522562 E11.9 will need A1c done today has lost 20lbs and is feeling good and continue to eat well Displaceme nt of lumbar intervertebral disc without myelopathy 70828847 M51.26 cont with ongoing phys therapy and will be considerin g epidural injections await specialist follow up overall is better thatn in past has been able to manage the right posterior thigh pain radicular Psoriasis 1029980 L40.9 stable with humira [id number] Danny Hughes DO [facility] [address] [facility],[place] [address] 05/20/2018 09:08:27 05/20/2018 09:49:49 Type 2 diabetes mellitus 56963933 E11.9 will need A1c done today has lost 30lbs and is feeling good and continue to eat well!!!!! very impressive and he is sleeping better more energy and his back does not hurt as much Psoriasis 4168863 L40.9 stable with humira so far will get another cbc etc [id number] Danny Hughes DO [facility] [address] [facility],[place] [address] 03/10/2019 09:56:19 03/10/2019 10:49:55 Type 2 diabetes mellitus 56663245 E11.65 await lab results Psoriasis 0604359 L40.9 on humira + ammonium lactate sees abbie mariam s Right side sciatica 3202 513851 36591 M54.31 uses gabapentin a few times per month Body mass index 40+ - severely obese 907260660 Z68.41 Tobacco user 624838018 Z 72.0 he smokes 2 cig per day trying to quit [id number] Danny Hughes DO [facility] [address] [facility] [address],[place] [address] 07/16/2019 08:57:33 07/16/2019 09:32:43 Type 2 diabetes mellitus 45456978 E11.9 will need A1c done today has lost 40lbs!!!!! ! and is feeling good and continue to eat well!!!!! 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 18 [id number] Danny Hughes [facility] [address] [facility] [address],[place] [address] 10/25/2019 13:35:29 10/25/2019 14:00:24 Umbilical hernia 379878660 K42.9 the patient would like a referral to general surgery for consult about next steps for umbilical hernia [id number] Danny Hughes [facility] [address] [facility] [address],[place] [address] 12/03/2019 08:44:18 12/03/2019 10:17:00 Type 2 diabetes mellitus 28228884 E11.9 will need A1c done today has lost 25lbs!!!!! ! and is feeling good and continue to eat well!!!!! very impressive and he is sleeping better more energy and his back does not hurt as much Displaceme nt of lumbar intervertebral disc without myelopathy 08795746 M51.26 cont with ongoing phys therapy and will be considerin g epidural injections await specialist follow up overall is better thatn in past has been able to manage the right posterior thigh pain radicular [id number] Danny Hughes [facility] [address] [facility] [address],[place] [address] 02/16/2020 15:49:01 02/16/2020 16:07:59 Mass of lower limb 020534520 R22.41 set up with general surgery Anxiety 24524027 F41.9 stable [id number] Danny Hughes [facility] [address] [facility] [address],[place] [address] 04/19/2020 08:54:43 04/19/2020 14:16:07 Type 2 diabetes mellitus 49893186 E11.9 will need A1c done today has lost 25lbs!!!!! ! and is feeling good and continue to eat well!!!!! very impressive and he is sleeping better more energy and his back does not hurt as much Displaceme nt of lumbar intervertebral disc without myelopathy 94141590 M51.26 cont with ongoing phys therapy and will be considerin g epidural injections await specialist follow up overall is better thatn in past has been able to manage the right posterior thigh pain radicular [id number] Danny Hughes DO [facility] [address] [facility],[place] [address] 11/22/2020 10:28:20 11/22/2020 11:27:41 Type 2 diabetes mellitus 70624059 E11.9 will need A1c done today has lost 40+ lbs!!!!!! and is feeling good and continue to eat well!!!!! very impressive and he is sleeping better more energy and his back does not hurt as much Body mass index 40+ - severely obese 976940161 Z68.41 but is now down and markedly better with the 40 lb loss Methadone dependence 231 951329 F11.20 cont to taper down !!!! 18 Primary er ectile dysfunction 324611246 N52.9 chk testost also try sildenafil [id number] Danny Hughes DO [facility] [address] [facility],[place] [address] 12/22/2020 16:22:49 12/22/2020 16:50:36 Type 2 diabetes mellitus 48395272 E11.65 will need A1c done today has lost 40+ lbs!!!!!! and is feeling good and continue to eat well!!!!! very impressive and he is sleeping better more energy and his back does not hurt as much Hypotestosteronism 66955 51407 104 R79.89 markedly low number levels will chk LH and FSH and start tx now [id number] Danny Hughes DO [facility] [address] [facility] [address] [address] 03/07/2021 09:08:23 03/07/2021 10:40:38 Type 2 diabetes mellitus 51215377 E11.65 will need A1c done today has kept off the 40+ lbs!!!!!! and is feeling good and continue to eat well!!!!! very impressive and he is sleeping better more energy and his back does not hurt as much Anxiety 36933509 F41.9 stress level about the same Hypotestosteronism 48164 39371 104 R79.89 markedly low number levels will chk LH and FSH and start tx now [id number] Danny Hughes [facility] [address] [facility], [place] [address] 06/27/2021 10:03:41 06/27/2021 11:25:43 Type 2 diabetes mellitus 31464288 E11.65 will need A1c done today has kept off the 40+ lbs!!!!!! and is feeling good and continue to eat well!!!!! very impressive and he is sleeping better more energy and his back does not hurt as much Hypogonadism 25855841 E2 9.1 we will bee checking his testostero ne Body mass index 40+ - severely obese 649209720 Z68.41 but is now down and markedly better with the 40 lb loss Methadone dependence 231 645771 F11.20 cont to taper down !!!! 18 [id number] Danny Hughes [facility] [address] [facility], [place] [address] 12/27/2022 09:23:26 12/30/2022 10:00:40 Type 2 diabetes mellitus 23507114 E11.65 needs lab has been 6 mo willorder and then see pt [id number] Danny Hughes [facility] [address] [facility] [address],[place] [address] 07/07/2023 11:20:23 07/07/2023 12:18:56 Type 2 diabetes mellitus 82128752 E11.65 needs lab has been 6 mo willorder and then see pt Hypogonadism 27944254 E2 9.1 we will bee checking his testostero ne Anxiety 39324641 F41.9 stress level about the same [id number] Danny Hughes [facility] [address] [facility] [address], [place] [address] 06/30/2024 10:45:04 06/30/2024 12:09:15 Type 2 diabetes mellitus 51753681 E11.65 will set up with lab work Psoriasis 1537796 L40.8 stable Hypogonadism 81077683 E2 9.1 bw recheck Family his tory of cancer of colon 138633667 Z80.0 will get back to me Displaceme nt of lumbar intervertebral disc without myelopathy 59951234 M51.26 will send in refill Insomnia 826297523 F51.0 1 trial mirtazapin e [id number] Danny Hughse [facility] [address] [facility] [address], [facility]e [facility] [place] [address] 01/21/2025 08:57:16 01/21/2025 16:23:28 Depression screening 641786850 Z13.31 neg Type 2 devyn betes mellitus 93878993 E11.65 needs lab has been 6 mo will order and then see pt in 3 [facility] wendy benefit from a GLP 1 med will give ozempic samples [id number] Danny Hughes [facility] [address] [facility] [address], [place] [address] 02/21/2025 15:51:12 02/21/2025 16:42:43 Depression screening 453762441 Z13.31 neg Type 2 devyn betes mellitus 40085657 E11.65 doing great and has lost signif wgt states feels better and relates tolerates the oztamia wendy benefit from a GLP 1 med will give ozempic samples a1c is pending Health Concerns Section Related Observation LastModified by Organization Detai ls LastModified Time None Recorded Concern Status LastModified by Organization Details LastModified Time None Recorded Advance Directives Directive None Recorded Payers Insurance Date Sequence Insurance Name Policy Number Policy Michaud Covered Member ID Michaud Member ID Guarantor Name 01/21/2025 1 [facility] (HMO) [id number] Reid Mckinley [id number] Reid Mckinley 02/18/2025 1 [employer] [facility] (PPO) [id number] Reid Mckinley [id number] Reid Mckinley Notes Date Note Type Note Provider Name a nd Address Organization Details Recorded Time 3 text/html ROS as noted in the HPI patient is evaluated via tele/video assessment per patient consentduring current pandemic states he is feeling pretty good overall physically doing great but mentally just had a break up and is upsetno issues with medsstates that he had been trying to keep his sugars down as he had been nervous about his last a1c Danny Hughes DO [address] [place], [address], [facility] 12/27/2022 15:29:43 4 text/html ROS as noted in the HPI relates that he is struggling right now sugar prob [place] re injured his backhe fas signif loss of sensation down his left legrelates that he is getting epidural inj july 13 L4-5 areahis mom has stage 4 colon cancer with met to liver Danny Hughes DO [address] [place], [address], [facility] 07/07/2023 16:47:30 5 text/html ROS as noted in the HPI c/o diabetic check patient has not had lab work since July of last yearoverdue for lab work [facility] still doing humira for the psoriasis treatment no other medications have changed Patient presents today for follow-up for Type 2 Diabetes Last lab showed an A1c of 6.6%, needs lab work, has been busy due to the fact his mom diagnosed with stage IV colon cancershe is 76 y/o, can get a colonoscopy now but will get back to me when The patient has been compliant with medications per patientThe complications patient is experiencing are n/aThe patient has current concerns about related to their diabetes diagnosis, needs lab workThe patient has been compliant with lifestyle changes including dietary changes, exercise and healthy habits Discussion about feet reveals normalDiscussion about eyes reveal normal Treatment plan going forward is BW to confirm correct dosage of meds also need T level check as he is overdue for a recheck since being on the medication within the last 3 to 6 moswill provide lab order LEANNA COMER [address] [place], [address], [facility] 06/30/2024 11:23:31 5 text/html Care Management - DiabetesReported by PatientHPIFor self care, patient reportsseeing eye doctor yearly for dilated eye exam,checking feet regularly,normal range of home blood sugars (in the low 100s), andno side effects from medications. For associated symptoms, patient reportssymptoms are usually well controlled,no fatigue,no dizziness,no excessive sweating,no headaches,no confusion,no increased thirst,no increased appetite,no increased urination,no blurred vision,no numbness of feet, andno calluses on feet.long detailed discussionROS as noted in the HPI Danny Hughes DO [address] [place] [address], [phone], [facility] 01/21/2025 09:25:46 5 text/html Care Management - DiabetesReported by PatientHPIFor self care, patient reportsseeing eye doctor yearly for dilated eye exam,checking feet regularly,normal range of home blood sugars (in the low 100s), andno side effects from medications. For associated symptoms, patient reportssymptoms are usually well controlled,no fatigue,no dizziness,no excessive sweating,no headaches,no confusion,no increased thirst,no increased appetite,no increased urination,no blurred vision,no numbness of feet, andno calluses on feet.ROS as noted in the HPI here for rechk and is doing ok overallhas lost close to 30 lbs relates feels better and more energyalso is tolerating mounjamatti Hughes DO [address] [place] [address], [phone], [facility] 02/21/2025 16:39:52
--- OUTSIDE RECORDS SUMMARY | 2025-02-22 10:30 | XMS_ITS | Continuity of Care Document ---
Author Organization [facility], [facility] Address [address] [place] [address] [place] [address] Assessment Encounter Date Assessment Date Assessment LastModified by Organization Details LastModified Time 02/21/2025 02/21/2025 [address] [place] [id number] (TOOTH GRINDER) : MDM LOW MUST MEET 2 OF [...] THOROUGHLY DOCUMENT ALL OF THE ELEMENTS COVERED [email or web address] Not available 02/21/2025 16:35:24 Plan of Treatment Reminders Order Date Submit Date Provider Last Modified By Organization Details Last Modified Time Details Appointments None recorded. Lab hemoglobin A1c, QN, blood 2024 025 [facility], [address] [place] [address], [place], [address], 16:38:17 Referral None recorded. Procedures None recorded. Surgeries None recorded. Imaging None recorded. Medication Orders None recorded. Patient TargetsNo targets recorded. Patient InstructionsNo instructions recorded. Reason for Referral None Reported. Problems Name Problem SNOMED Code Status Onset Date Resolution Date Notes Provider Name and Address Organization Details Recorded Time Dion gonzalez 189609148 [facility] 14:24:23 Anxiety 13945986 Active 2017 Chikis rasheed [facility] 8 14:24:29 Type 2 diabetes mellitus 80015564 Active 2017 Chikis rasheed [facility] 8 14:24:34 Lumbar hernia 38111662 Completed 201709/03/2017 Danny Hughes DO [address] [place] [address], [phone], [facility] 8 11:52:52 Displace ment of lumbar interver tebral disc without myelopat hy 26597574 Active 2017 Danny Hughes DO [address] [place] [address], [phone], [facility] 8 11:53:15 Psoriasi s 3398944 Active 2017 Danny Hughes DO [address] [place] [address], [phone], [facility] 8 10:53:44 Tobacco user 567871038 Active 2018 ZENON Vegas [address] [place] [address], [phone], [facility] 9 10:42:21 Hypogona dism 80270400 Active 2021 Danny Hughes DO [address] [place] [address], [phone], [facility] 2 15:43:40 Dental abscess 084928195 Active 2023 Danny Hughes DO [address] [place] [address], [phone], [facility] 4 11:11:16 Insomnia 471578760 Active 2024 LEANNA COMER [address] [place] [address], [phone], [facility] 11:11:02 Problem Notes None recorded. Medical Equipment [...] Not Available Vitals Date Recorded Body height Heart rate Oxygen saturation Oxygen saturation in Arterial blood by Pulse oximetry Systolic And Diastolic Provider Name and Address Organization Details Last Updated DateTime 191.14 cm 102 /min 95 % 95 % 132/86 mm[Hg] Kerri Perez [facility] 16:11:03 Social History Question Answer Notes LastModified by Organizat ion Details LastModified Time Tobacco Smoking Status Current Some Day Smoker 4 per day Not Available [facility] 03/07/2020 03:36:23 What Was The Date Of Your Most Recent Tobacco Screening? 02/21/2025 [email or web address] Information not available 02/21/2025 Sex: Unknown Functional Status None recorded. Mental Status None recorded. Family History Nothing Reported. Medical History No medical history recorded. Immunizations Vaccine Type Date Status Note Provider Yasmani e and Address Organization Details Recorded Time Tdap 12/03/2019 completed Danny Hughes DO [address] [place] [address], [phone], [facility] 11/22/2020 10:32:56 COVID-19, mRNA, LNP-S, PF, 100 mcg/0.5mL dose or 50 mcg/0.25mL dose 05/30/2020 completed Madie Dallas [address] [place] [address], [phone], [facility] 11/22/2020 10:33:11 COVID-19, mRNA, LNP-S, PF, 100 mcg/0.5mL dose or 50 mcg/0.25mL dose 06/27/2020 completed Maide Dallas [address] [place] [address], [phone], [facility] 11/22/2020 10:33:19 Past Encounters Encounter ID Performer Location Encounter Start Date Encounter Closed Date Diagnosis/Indication Diagnosis SNOMED-CT Code Diagnosis ICD10 Code Diagnosis IMO Codes Diagnosis Note [id number] Danny Hughes DO [facility] [address] [place] [address] 02/21/2025 15:51:12 02/21/2025 16:42:43 Depression screening 939522530 Z13.31 neg Type 2 devyn betes mellitus 86624648 E11.65 doing great and has lost signif wgt states feels better and relates tolerates the ozempiche wendy benefit from a GLP 1 med will give ozempic samples a1c is pending Health Concerns Section Related Observation LastModified by Organization Detai ls LastModified Time None Recorded Concern Status LastModified by Organization Details LastModified Time None Recorded Payers Encounter Date Sequence Insurance Name Policy Number Policy Michaud Covered Member ID Michaud Member ID Guarantor Name 02/21/2025 1 [employer] [facility] [id number] Reid Arlen [id number] Reid Mckinley Notes Date Note Type Note Provider Name a vt Address Organization Details Recorded Time 5 text/html Care Management - DiabetesReported by [...] feels better and more energyalso is tolerating romelia Hughes, DO [address] [place] [address], [place], [address], [facility] 02/21/2025 16:39:52
[2025-02-22 14:46] LABS: Hemoglobin A1C 281.2017 umol/L; Total Hemoglobin (HGBA1C) 3519.1169 umol/L
== END 2025-02-22 09:26 | disposition home or self-care (01) ==
LOC: HO.MANLDS 09:25
PROVIDERS: Visit Provider Internal Medicine
DX: E11.65 Type 2 diabetes mellitus with hyperglycemia (principal)
CPT/HCPCS: 36415; 83036

== ENCOUNTER 2025-04-08 11:37 | Outpatient (REF) | payer OTHER, SELFPAY | END 2025-04-08 11:38 | disposition home or self-care (01) | LOC: HO.MANLDS 11:37 | PROVIDERS: Visit Provider Internal Medicine | DX: E11.65 Type 2 diabetes mellitus with hyperglycemia (principal); E29.1 Testicular hypofunction | CPT/HCPCS: 36415; 83036; 84403 ==

== ENCOUNTER 2025-04-20 09:56 | Outpatient (REF) | payer OTHER, SELFPAY ==
--- OUTSIDE RECORDS SUMMARY | 2025-04-20 12:01 | XMS_ITS | Encounter Summary ---
Author Organization [facility] Address [address] [place] [address] Care Team Providers Care Sheet Metal Assembler And Riveter Name Role Phone Danny Hughes DO Primary Care Provider [phone] Encounter Details Date Type Department Care Team (Latest Contact Info) Description 03/14/2025 Lab Requisition [facility] - Main Lab [address] [facility] [place] [address] Malena Lemus PA [address] [place] [address] Opioid dependence, uncomplicated (CMS/HCC V24, CMS/HCC V28) Social History Tobacco Use Types Packs/Day Years Used Date Smoking Tobacco: Never Smokeless Tobacco: Never Sex and Gender Information Value Date Recorded Sex Assigned at Not on file Legal Sex Male 8:24 PM EST Gender Identity Not on file Sexual Orientation Not on file documented as of this encounter Plan of Treatment Not on file documented as of this encounter Procedures Procedure Name Priority Date/Time Associated Diagnosis Comments HEPATITIS C ANTIBODY Routine 03/14/2025 6:00 AM EST Opioid dependence, uncomplicated (CMS/HCC V24, CMS/HCC V28) HIV 1, 2 ANTIBODY, P24 ANTIGEN WITH REFLEX TO DIFFERENTIATION Routine 03/14/2025 6:00 AM EST Opioid dependence, uncomplicated (CMS/HCC V24, CMS/HCC V28) WHITE - NO ADDITIVE Routine 03/14/2025 6 :00 AM EST Opioid dependence, uncomplicated (CMS/HCC V24, CMS/HCC V28) HEPATITIS B SURFACE ANTIGEN WITH CONFIRMATION Routine 03/14/2025 6:00 AM EST Opioid dependence, uncomplicated (CMS/HCC V24, CMS/HCC V28) TREPONEMA PALLIDUM ANTIBODY WITH REFLEX TO RPR AND PARTICLE AGGLUTINATION Routine 03/14/2025 6:00 AM EST Opioid dependence, uncomplicated (CMS/HCC V24, CMS/HCC V28) RED - PLAIN Routine 03/14/2025 6:00 AM EST Opioid dependence, uncomplicated (CMS/HCC V24, CMS/HCC V28) HEPATITIS B CORE ANTIBODY, TOTAL Routine 03/14/2025 6:00 AM EST Opioid dependence, uncomplicated (CMS/HCC V24, CMS/HCC V28) HEPATITIS B SURFACE ANTIBODY Routine 03/14/2025 6:00 AM EST Opioid dependence, uncomplicated (CMS/HCC V24, CMS/HCC V28) COMPLETE BLOOD COUNT Routine 03/14/2025 6:00 AM EST Opioid dependence, uncomplicated (CMS/HCC V24, CMS/HCC V28) COMPREHENSIVE METABOLIC PANEL Routine 03/14/2025 6:00 AM EST Opioid dependence, uncomplicated (CMS/HCC V24, CMS/HCC V28) documented in this encounter Results * White no additive tube (03/14/2025 6:00 AM EST) Extra Tube Hold for add-ons. 03/14/2025 3:01 PM EST [facility] Comment:Auto resulted. Urine Urine specimen obtained by clean catch procedure / Unknown 03/14/2025 6:00 AM EST 03/14/2025 1:52 PM EST us Malena RAM [facility] MICROBIOLOGY - GENERAL ORDE EVAN Final Result [facility] [address] [place] [address], * Red tube (03/14/2025 6:00 AM EST) [facility] Extra Tube Hold for add-ons. 03/14/2025 3:01 PM EST [facility] Comment:Auto resulted. Blood Venous blood specimen / Unknown 03/14/2025 6:00 AM EST 03/14/2025 1:52 PM [facility] BLOOD ORDERABLES Final Resu lt Performing Organization Address [facility]/ZIP Co de Phone Number [facility] [address] [place] [address], * HIV 1,2 antibody, p24 antigen with reflex to differentiation (03/14/2025 6:00 AM EST) [facility] HIV Combo AB/AG Negative Negative LAB CHEMISTRY METHOD 03/14/2025 8:26 PM EST [facility] Blood Venous blood specimen / Unknown 03/14/2025 6:00 AM EST 03/14/2025 1:52 PM EST Narrative [facility] - 03/14/2025 8:26 PM EST This assay is a 4th generation assay allowing for earlier detection of HIV infection by detecting the presence of the HIV-1 p24 antigen as well as the traditional antibodies to HIV type 1 (including group O) and type 2. Use of a 4th generation assay is the current CDC recommendation for HIV screening. [facility] BLOOD ORDERABLES Final Resu lt Performing Organization Address City/[facility]/ZIP Co de Phone Number [facility] [address] [place] [address], [place] [phone] * Treponema pallidum antibody with reflex to RPR and particle agglutination (03/14/2025 6:00 AM EST) [facility] T. Pallidum Antibodies Negative Negative LAB CHEMISTRY METHOD 03/14/2025 9:10 PM EST [facility] Blood Venous blood specimen / Unknown 03/14/2025 6:00 AM EST 03/14/2025 1:52 PM EST Malena Nassardennis RAM LAB BLOOD ORDERABLES Final Resu lt [facility] [address] [place] [address], [place] [phone] * Hepatitis C antibody (03/14/2025 6:00 AM EST) Hepatitis C Antibody Negative Negative LAB CHEMISTRY METHOD 03/14/2025 8:25 PM EST [facility] Blood Venous blood specimen / Unknown 03/14/2025 6:00 AM EST 03/14/2025 1:52 PM EST Malena [address] CT LAB BLOOD ORDERABLES Final Resu lt Performing Organization Address [facility]/ZIP Co de Phone Number [facility] [address] [place] [address], [place] [phone] * Hepatitis B core antibody, total (03/14/2025 6:00 AM EST) Hep B Core Total Ab Negative Negative LAB CHEMISTRY METHOD 03/14/2025 8:25 PM EST [facility] Blood Venous blood specimen / Unknown 03/14/2025 6:00 AM EST 03/14/2025 1:52 PM EST [facility] BLOOD ORDERABLES Final Resu lt Performing Organization Address City/[facility]/ZIP Co de Phone Number [facility] [address] [place] [address], [place] [phone] * Hepatitis B surface antigen with reflex to confirmation (03/14/2025 6:00 AM EST) Hepatitis B Surface Ag Negative Negative LAB CHEMISTRY METHOD 03/14/2025 7:58 PM EST [facility] Blood Venous blood specimen / Unknown 03/14/2025 6:00 AM EST 03/14/2025 1:52 PM EST [facility] - 03/14/2025 7:58 PM EST Over the counter supplements containing high doses of biotin may interfere with this assay. If interference is suspected, patients shoud be retested after refraining from biotin supplements for 72 hours. [facility] LAB BLOOD ORDERABLES Final Resu lt Performing Organization Address [facility]/ZIP Co de Phone Number [facility] [address] [place] [address], * Hepatitis B surface antibody (03/14/2025 6:00 AM EST) Hepatitis B Surface Ab Negative Negative LAB CHEMISTRY METHOD 03/14/2025 7:46 PM EST [facility] Hepatitis B Surface Ab Quantitative <3.1 mIU/mL LAB CHEMISTRY METHOD 03/14/2025 7:46 PM EST [facility] Blood Venous blood specimen / Unknown 03/14/2025 6:00 AM EST 03/14/2025 1:52 PM EST [facility] - 03/14/2025 7:46 PM EST >=10 mIU/mL is considered to be consistent with immunity. [facility] LAB BLOOD ORDERABLES Final Resu lt Performing Organization Address City/[facility]/ZIP Co de Phone Number [facility] [address] [place] [address], * (ABNORMAL) Comprehensive metabolic panel (03/14/2025 6:00 AM EST) Sodium 136 133 - 145 mmol/L LAB CHEMISTRY METHOD 03/14/2025 5:56 PM [facility] Potassium 5.4 3.5 - 5.5 mmol/L LAB CHEMISTRY METHOD 03/14/2025 5:56 PM [facility] Chloride 100 96 - 110 mmol/L LAB CHEMISTRY METHOD 03/14/2025 5:56 PM [facility] CO2 32 21 - 32 mmol/L LAB CHEMISTRY METHOD 03/14/2025 5:56 PM [facility] Anion Gap 4 3 - 11 LAB CHEMISTRY METHOD 03/14/2025 5:56 PM [facility] Glucose 160(H) 70 - 100 mg/dL LAB CHEMISTRY METHOD 03/14/2025 5:56 PM [facility] BUN 16 5 - 25 mg/dL LAB CHEMISTRY METHOD 03/14/2025 5:56 PM [facility] Creatinine 1.02 0.70 - 1.30 mg/dL LAB CHEMISTRY METHOD 03/14/2025 5:56 PM [facility] eGFR 92 >=60 mL/min/1. 73m2 LAB CHEMISTRY METHOD 03/14/2025 5:56 PM [facility] Comment:Calculation based on the Chronic Kidney Disease Epidemiology Collaboration (CKD-EPI) equation refit without adjustment for race. BUN/Creatinine Ratio 15.7 LAB CHEMISTRY METHOD 03/14/2025 5:56 PM [facility] Calcium 9.2 8.5 - 10.5 mg/dL LAB CHEMISTRY METHOD 03/14/2025 5:56 PM [facility] AST (SGOT) 20 10 - 42 unit/L LAB CHEMISTRY METHOD 03/14/2025 5:56 PM [facility] ALT (SGPT) 37 10 - 60 unit/L LAB CHEMISTRY METHOD 03/14/2025 5:56 PM [facility] Alkaline Phosphatase 64 42 - 121 unit/L LAB CHEMISTRY METHOD 03/14/2025 5:56 PM [facility] Total Protein 7.6 6.0 - 8.0 g/dL LAB CHEMISTRY METHOD 03/14/2025 5:56 PM EST [facility] Albumin 4.1 3.2 - 5.0 g/dL LAB CHEMISTRY METHOD 03/14/2025 5:56 PM EST [facility] Total Bilirubin 0.5 0.0 - 1.4 mg/dL LAB CHEMISTRY METHOD 03/14/2025 5:56 PM [facility] Blood Venous blood specimen / Unknown 03/14/2025 6:00 AM EST 03/14/2025 1:52 PM EST us Malena RAM LAB BLOOD ORDERABLES Final Resu lt [facility] [address] [place] [address], [place] [phone] * Complete blood count (03/14/2025 6:00 AM EST) WBC 8.3 4.8 - 10.8 K/mcL LAB HEMETOLOGY METHOD 03/14/2025 2:31 PM [facility] RBC 5.10 4.50 - 5.50 M/mcL LAB HEMETOLOGY METHOD 03/14/2025 2:31 PM [facility] Hemoglobin 14.4 13.5 - 17.5 g/dL LAB HEMETOLOGY METHOD 03/14/2025 2:31 PM [facility] Hematocrit 44.9 42.0 - 54.0 % LAB HEMETOLOGY METHOD 03/14/2025 2:31 PM [facility] MCV 88.9 79.0 - 98.0 FL LAB HEMETOLOGY METHOD 03/14/2025 2:31 PM [facility] MCH 28.5 27.0 - 32.0 pcg LAB HEMETOLOGY METHOD 03/14/2025 2:31 PM [facility] MCHC 32.1 32.0 - 37.0 g/dL LAB HEMETOLOGY METHOD 03/14/2025 2:31 PM EST [facility] RDW 12.5 11.0 - 15.0 % LAB HEMETOLOGY METHOD 03/14/2025 2:31 PM EST [facility] Platelets 319 130 - 400 K/mcL LAB HEMETOLOGY METHOD 03/14/2025 2:31 PM [facility] MPV 10.2 7.0 - 11.0 FL LAB HEMETOLOGY METHOD 03/14/2025 2:31 PM EST [facility] NRBC 0.0 <1.0 % LAB HEMETOLOGY METHOD 03/14/2025 2:31 PM [facility] NRBC Absolute 0.00 <0.10 K/mcL LAB HEMETOLOGY METHOD 03/14/2025 2:31 PM [facility] Blood Venous blood specimen / Unknown 03/14/2025 6:00 AM EST 03/14/2025 1:52 PM EST us Malena RAM LAB BLOOD ORDERABLES Final Resu lt [facility] [address] [place] [address], documented in this encounter Visit Diagnoses Diagnosis Opioid dependence, uncomplicated (CMS/HCC V24, CMS/HCC V28) documented in this encounter Care Teams Sheet Metal Assembler And Riveter Relationship Specialty Start Date End Date Danny Hughes DO [address] [place], [place] PCP - General Internal Medicine 06/06/16 documented as of this encounter
--- OUTSIDE RECORDS SUMMARY | 2025-04-20 12:01 | XMS_ITS | Clinical Summary ---
Author Organization [address] [facility] Address [address] [place] [address] Phone Care Team Providers Care Indian Trader Name Role Phone Danny Hughes DO Primary Care Provider [phone] Encounters Date Type Department Care Team Description 03/14/2025 Lab Requisition [facility] - Main Lab [address] [facility] [place] [address] Malena Lemus PA Opioid dependence, uncomplicated (CMS/HCC V24, CMS/HCC V28) from Last 3 Months Medical History Medical History Date Comments Kidney stones DX:Kidney stones Family History Medical History Relation Name Comments Other: [id number] Other 1 Relation Name Status Comments Other 1 Other 2 Social History Tobacco Use Types Packs/Day Years Used Date Smoking Tobacco: Never Smokeless Tobacco: Never Sex and Gender Information Value Date Recorded Sex Assigned at Not on file Legal Sex Male 8:24 PM EST Gender Identity Not on file Sexual Orientation Not on file Plan of Treatment Health Maintenance Due Date Last Done Comments Colorectal Cancer Screening: Colonoscopy 1978 Diabetes: Annual Foot Exam 1988 Diabetes: Annual Retina Eye Exam 1988 Hepatitis A Vaccines (1 of 2 - Risk 2-dose series) 1997 Hepatitis B Vaccines (1 of 3 - 19+ 3-dose series) 1997 Cholesterol Screening (Lipid Panel) 04/06/2022 Social Influencers of Health Screening 04/06/2022 Diabetes: Annual Urine Albumin-Creatinine Ratio (uACR) 04/20/2022 Diabetes: Blood Sugar Contro l Test (HGBA1C) 04/20/2022 Depression Screening 05/05/2024 COVID-19 Vaccine ( - 2024-2 6 season) 2025 05/15/2021, 06/27/2020, 05/30/2020 Influenza Vaccine (#1) 2025 Diabetes: Annual GFR (Glomerular Filtration Rate) 03/14/2026 03/14/2025, 05/31/2024 DTaP,Tdap,and Td Vaccines (2 - Td or Tdap) 12/02/2029 12/03/2019 RSV Immunization Adult Patients (1 - 1-dose 75+ series) 2053 HIV Screening Completed 03/14/2025 Hepatitis C Screening Completed 03/14/2025 HIB Vaccines Aged Out No longer eligi ble based on patient's age to complete this topic HPV Vaccines Aged Out No longer eligi ble based on patient's age to complete this topic IPV Vaccines Aged Out No longer eligi ble based on patient's age to complete this topic MMR Vaccines Aged Out No longer eligi ble based on patient's age to complete this topic Meningococcal ACWY Vaccine Aged Out N o longer eligible based on patient's age to complete this topic Meningococcal B Vaccine Aged Out No l onger eligible based on patient's age to complete this topic Pneumococcal Vaccine: Pediatrics (0 to 5 Years) and At-Risk Patients (6 to 49 Years) Aged Out No longer eligible b ased on patient's age to complete this topic RSV Immunization Patients Under 20 months Aged Out No longer eligible b ased on patient's age to complete this topic Varicella Vaccines Aged Out No longer eligible based on patient's age to complete this topic Procedures Procedure Name Priority Date/Time Associated Diagnosis Comments RED - PLAIN Routine 03/14/2025 6:00 AM EST Opioid dependence, uncomplicated ([facility] V24, [facility] V28) HIV 1, 2 ANTIBODY, P24 ANTIGEN WITH REFLEX TO DIFFERENTIATION Routine 03/14/2025 6:00 AM EST Opioid dependence, uncomplicated ([facility] V24, [facility] V28) TREPONEMA PALLIDUM ANTIBODY WITH REFLEX TO RPR AND PARTICLE AGGLUTINATION Routine 03/14/2025 6:00 AM EST Opioid dependence, uncomplicated ([facility] V24, [facility] V28) HEPATITIS C ANTIBODY Routine 03/14/2025 6:00 AM EST Opioid dependence, uncomplicated ([facility] V24, CMS/HCC V28) HEPATITIS B CORE ANTIBODY, [...] Opioid dependence, uncomplicated (CMS/HCC V24, CMS/HCC V28) from Last 3 Months Results * Hepatitis C antibody (03/14/2025 6:00 AM EST) [facility] Hepatitis C Antibody Negative Negative LAB CHEMISTRY METHOD 03/14/2025 8:25 PM EST [facility] Blood Venous blood specimen / Unknown 03/14/2025 6:00 AM EST 03/14/2025 1:52 PM EST us Malena RAM LAB BLOOD ORDERABLES Final Resu lt [facility] [address] [place] [address], * HIV 1,2 antibody, p24 antigen with reflex to differentiation (03/14/2025 6:00 AM EST) HIV Combo AB/AG Negative Negative LAB CHEMISTRY METHOD 03/14/2025 8:26 PM EST [facility] Blood Venous blood specimen / Unknown 03/14/2025 6:00 AM EST 03/14/2025 1:52 PM EST Narrative [facility] - 03/14/2025 8:26 PM EST This assay is a 4th generation assay allowing for earlier detection of HIV infection by detecting the presence of the HIV-1 p24 antigen as well as the traditional antibodies to HIV type 1 (including group O) and type 2. Use of a 4th generation assay is the current CDC recommendation for HIV screening. Malena RAM LAB BLOOD ORDERABLES Final Resu lt Performing Organization Address City/[facility]/ZIP Co de Phone Number [facility] [address] [place] [address], [place] [phone] * White no additive tube (03/14/2025 6:00 AM EST) Pathologist [facility] [place] Extra Tube Hold for add-ons. 03/14/2025 3:01 PM EST [facility] Comment:Auto resulted. Urine Urine specimen obtained by clean catch procedure / Unknown 03/14/2025 6:00 AM EST 03/14/2025 1:52 PM EST Malena RAM LAB MICROBIOLOGY - GENERAL ORDE RABLES Final Result [facility] [address] [place] [address], [place] [phone] * Hepatitis B surface antigen with reflex to confirmation (03/14/2025 6:00 AM EST) Pathologist [facility] [place] Hepatitis B Surface Ag Negative Negative LAB CHEMISTRY METHOD 03/14/2025 7:58 PM EST [facility] Blood Venous blood specimen / Unknown 03/14/2025 6:00 AM EST 03/14/2025 1:52 PM EST Narrative [facility] - 03/14/2025 7:58 PM EST Over the counter supplements containing high doses of biotin may interfere with this assay. If interference is suspected, patients shoud be retested after refraining from biotin supplements for 72 hours. [facility] LAB BLOOD ORDERABLES Final Resu lt Performing Organization Address City/[facility]/ZIP Co de Phone Number [facility] [address] [place] [address], [place] [phone] * Treponema pallidum antibody with reflex to RPR and particle agglutination (03/14/2025 6:00 AM EST) T. Pallidum Antibodies Negative Negative LAB CHEMISTRY METHOD 03/14/2025 9:10 PM EST [facility] Blood Venous blood specimen / Unknown 03/14/2025 6:00 AM EST 03/14/2025 1:52 PM EST [facility] LAB BLOOD ORDERABLES Final Resu lt Performing Organization Address [facility]/ZIP Co de Phone Number [facility] [address] [place] [address], [place] [phone] * Red tube (03/14/2025 6:00 AM EST) Extra Tube Hold for add-ons. 03/14/2025 3:01 PM EST [facility] Comment:Auto resulted. Blood Venous blood specimen / Unknown 03/14/2025 6:00 AM EST 03/14/2025 1:52 PM EST [facility] LAB BLOOD ORDERABLES Final Resu lt Performing Organization Address City/[facility]/ZIP Co de Phone Number [facility] [address] [place] [address], [place] [phone] * Hepatitis B core antibody, total (03/14/2025 6:00 AM EST) Pathologist [facility] [place] Hep B Core Total Ab Negative Negative LAB CHEMISTRY METHOD 03/14/2025 8:25 PM EST [facility] Blood Venous blood specimen / Unknown 03/14/2025 6:00 AM EST 03/14/2025 1:52 PM EST [facility] BLOOD ORDERABLES Final Resu lt Performing Organization Address [facility]/ZIP Co de Phone Number [facility] [address] [place] [address], [place] [phone] * Hepatitis B surface antibody (03/14/2025 6:00 AM EST) [facility] Hepatitis B Surface Ab Negative Negative LAB CHEMISTRY METHOD 03/14/2025 7:46 PM EST [facility] Hepatitis B Surface Ab Quantitative <3.1 mIU/mL LAB CHEMISTRY METHOD 03/14/2025 7:46 PM EST [facility] Blood Venous blood specimen / Unknown 03/14/2025 6:00 AM EST 03/14/2025 1:52 PM EST Narrative [facility] - 03/14/2025 7:46 PM EST >=10 mIU/mL is considered to be consistent with immunity. [facility] BLOOD ORDERABLES Final Resu lt [facility] [address] [place] [address], [place] [phone] * Complete blood count (03/14/2025 6:00 AM EST) Pathologist [facility] [place] WBC 8.3 4.8 - 10.8 K/[facility] LAB HEMETOLOGY METHOD 03/14/2025 2:31 PM EST [facility] RBC 5.10 4.50 - 5.50 M/[facility] LAB HEMETOLOGY METHOD 03/14/2025 2:31 PM EST [facility] Hemoglobin 14.4 13.5 - 17.5 g/dL LAB HEMETOLOGY METHOD 03/14/2025 2:31 PM [facility] Hematocrit 44.9 42.0 - 54.0 % LAB HEMETOLOGY METHOD 03/14/2025 2:31 PM [facility] MCV 88.9 79.0 - 98.0 FL LAB HEMETOLOGY METHOD 03/14/2025 2:31 PM [facility] MCH 28.5 27.0 - 32.0 pcg LAB HEMETOLOGY METHOD 03/14/2025 2:31 PM [facility] MCHC 32.1 32.0 - 37.0 g/dL LAB HEMETOLOGY METHOD 03/14/2025 2:31 PM [facility] RDW 12.5 11.0 - 15.0 % LAB HEMETOLOGY METHOD 03/14/2025 2:31 PM [facility] Platelets 319 130 - 400 K/mcL LAB HEMETOLOGY METHOD 03/14/2025 2:31 PM [facility] MPV 10.2 7.0 - 11.0 FL LAB HEMETOLOGY METHOD 03/14/2025 2:31 PM [facility] NRBC 0.0 <1.0 % LAB HEMETOLOGY METHOD 03/14/2025 2:31 PM [facility] NRBC Absolute 0.00 <0.10 K/mcL LAB HEMETOLOGY METHOD 03/14/2025 2:31 PM [facility] Blood Venous blood specimen / Unknown 03/14/2025 6:00 AM EST 03/14/2025 1:52 PM EST us Malena RAM LAB BLOOD ORDERABLES Final Resu lt [facility] [address] [place] [address], * (ABNORMAL) Comprehensive metabolic panel (03/14/2025 6:00 AM EST) Sodium 136 133 - 145 mmol/L LAB CHEMISTRY METHOD 03/14/2025 5:56 PM [facility] Potassium 5.4 3.5 - 5.5 mmol/L LAB CHEMISTRY METHOD 03/14/2025 5:56 PM [facility] Chloride 100 96 - 110 mmol/L LAB CHEMISTRY METHOD 03/14/2025 5:56 PM [facility] CO2 32 21 - 32 mmol/L LAB CHEMISTRY METHOD 03/14/2025 5:56 PM [facility] Anion Gap 4 3 - 11 LAB CHEMISTRY METHOD 03/14/2025 5:56 PM [facility] Glucose 160(H) 70 - 100 mg/dL LAB CHEMISTRY METHOD 03/14/2025 5:56 PM [facility] BUN 16 5 - 25 mg/dL LAB CHEMISTRY METHOD 03/14/2025 5:56 PM [facility] Creatinine 1.02 0.70 - 1.30 mg/dL LAB CHEMISTRY METHOD 03/14/2025 5:56 PM [facility] eGFR 92 >=60 mL/min/1. 73m2 LAB CHEMISTRY METHOD 03/14/2025 5:56 PM [facility] Comment:Calculation based on the Chronic Kidney Disease Epidemiology Collaboration (CKD-EPI) equation refit without adjustment for race. BUN/Creatinine Ratio 15.7 LAB CHEMISTRY METHOD 03/14/2025 5:56 PM [facility] Calcium 9.2 8.5 - 10.5 mg/dL LAB CHEMISTRY METHOD 03/14/2025 5:56 PM [facility] AST (SGOT) 20 10 - 42 unit/L LAB CHEMISTRY METHOD 03/14/2025 5:56 PM [facility] ALT (SGPT) 37 10 - 60 unit/L LAB CHEMISTRY METHOD 03/14/2025 5:56 PM EST [facility] Alkaline Phosphatase 64 42 - 121 unit/L LAB CHEMISTRY METHOD 03/14/2025 5:56 PM [facility] Total Protein 7.6 6.0 - 8.0 g/dL LAB CHEMISTRY METHOD 03/14/2025 5:56 PM EST [facility] Albumin 4.1 3.2 - 5.0 g/dL LAB CHEMISTRY METHOD 03/14/2025 5:56 PM [facility] Total Bilirubin 0.5 0.0 - 1.4 mg/dL LAB CHEMISTRY METHOD 03/14/2025 5:56 PM [facility] Blood Venous blood specimen / Unknown 03/14/2025 6:00 AM EST 03/14/2025 1:52 PM EST us Malena RAM LAB BLOOD ORDERABLES Final Resu lt [facility] [address] [place] [address], from Last 3 Months Insurance [facility] Care Teams Indian Trader Relationship Specialty Start Date End Date Danny Hughes DO [address] [facility] [address] [place], [place] PCP - General Internal Medicine 06/06/16
== END 2025-04-20 09:57 ==
LOC: HO.MANLDS 09:56
PROVIDERS: Visit Provider Internal Medicine
DX: E29.1 Testicular hypofunction (principal)
CPT/HCPCS: 36415; 84403